=== PATIENT | female | born 1965 | race Caucasian/White ===

== ENCOUNTER 2019-08-13 05:46 | Inpatient (IN) ==
--- NOTE | 2019-07-17 16:37 | PAT Medication Instructions ---
Medication Instructions Date of Service July 17, 2019 Home Medications cholecalciferol (vitamin D3) [Vitamin D3] 5,000 unit PO QPM hydroxyzine HCl 25 mg PO QAM levothyroxine 175 mcg PO QAM pantoprazole 40 mg PO QAM DO NOT take the morning of surgery cholecalciferol (vitamin D3) [Vitamin D3] 5,000 unit PO QPM hydroxyzine HCl 25 mg PO QAM Take morning of surgery With a small sip of water, OTHERWISE NOTHING TO EAT OR DRINK AFTER MIDNIGHT: levothyroxine 175 mcg PO QAM pantoprazole 40 mg PO QAM Other Notes If you have any questions please call us at [phone] or [phone] or [phone] or [phone]
--- NOTE | 2019-07-18 08:35 | History & Physical Report ---
Date of Service July 18, 2019 date of surgery: 08-13-19 Assessment & Plan (1) Primary osteoarthritis of left knee: Further care discussed with patient and at this point in time has failed conservative measures and would like to proceed with a left total knee replacement. Plan on discharge will be home with home health physical therapy. DVT prophalaxis with TEDs, SCDs and will also place on aspirin 81 mg p.o. b.i.d. for a month postop. Patient will have follow up appointment in our office two weeks post op for staple removal and re-evaluation. Patient otherwise has no other questions or concerns. History of Present Illness Chief Complaint: left knee pain Primary Care Provider: Marquez Scott Ms Campos is a 53 year old female who is here for a follow up of left knee pain, presents for pre-op prior to a left total knee replacement at [facility]. she complains of pain and decreased range of motion. She states that the symptoms have been chronic non-traumatic. Currently the patient states that the symptoms are moderate-severe. The pain is described as aching, sharp and throbbing. She rates her current pain as 6/10. The symptoms are aggravated by ascending stairs, descending stairs, daily activities, driving, first steps while awake, kneeling, movement, repetitive activities, sleeping in any position, squatting and walking. Barbara states that the symptoms are relieved by no specific activity. In addition to the knee pain, she is also experiencing decreased mobility, difficulty bending, difficulty going to sleep, limping, nighttime awakening, pain, stiffness, tenderness and weakness. Prior NSAIDs include Aleve and Ibuprofen. she has also had prior visco injections without any relief. Allergies Allergy/AdvReac Type Severity Reaction Status Date / Time levofloxacin Allergy Unknown SEVERE RASH Verified 07/11/19 14:53 Home Medications Home Medications Medication Instructions Recorded Confirmed Type cholecalciferol (vitamin D3) 5,000 unit PO QPM 07/11/19 07/11/19 History [Vitamin D3] hydroxyzine HCl 25 mg PO QAM 07/11/19 07/11/19 History levothyroxine 175 mcg PO QAM 07/11/19 07/11/19 History pantoprazole 40 mg PO QAM 07/11/19 07/11/19 History Past Med/Surg History Medical History Anxiety Bulging discs GERD (gastroesophageal reflux disease) Hypothyroidism Osteoarthritis Surgical History History of bilateral breast reduction surgery History of breast biopsy History of carpal tunnel release History of colonoscopy History of gastric bypass History of surgery BLADDER SLING SURGERY History of tooth extraction History of total abdominal hysterectomy and bilateral salpingo-oophorectomy History of tubal ligation Nausea and vomiting after administration of anesthetic agent Family History Mother Family history of reaction to anesthesia PONV Brother Family history of diabetes mellitus Father Family history of diabetes mellitus Social History Preferred Language: Urdu Communication Ability: Effective Clinic Physician Required: No Beliefs That Will Affect Care: None Current Living Situation: Spouse Other Information That Helps Us Care for You: No Feels Safe at Home: Yes Safety Concerns: Feels Safe At This Time Smoking Status: Former smoker Tobacco Type: cigarettes ; Do You Dip or Chew Tobacco: No ; Smoking End Date: QUIT A TEEN ; Second Hand Exposure: No ; Tobacco Cessation Education Requested by Patient: No Hx Alcohol Use: No Hx Substance Use: No Review of Systems Review of Systems: All systems reviewed & are unremarkable except as noted in HPI & below Constitutional: no fever, no chills and no sweats Respiratory: no cough and no dyspnea Cardiovascular: no chest pain, no dyspnea and no orthopnea Gastrointestinal: no abdominal pain, no nausea and no vomiting Musculoskeletal: as per Subjective / HPI Physical Exam Physical Exam: Ht: 5ft 5in Wt: 117.9kg BP: 124/70 Pulse: 72 Constitutional: WD/WN, vitals as above no acute distress Respiratory: normal respiratory effort, lungs clear to auscultation no respiratory distress, no labored breathing and does not use accessory muscles Cardiovascular: RRR, no murmur, no edema Gastrointestinal (Abdomen): normal bowel sounds, soft, nontender, no hepatosplenomegaly Musculoskeletal: Knee: + knee abnormal to inspection (Left knee: ), + effusion (+1 effusion), + surgical incision (well healed portals), + limited ROM of knee (ROM 0/3/110), + knee ROM with crepitation, + joint line tenderness (medial joint line) and + Lina's sign positive; no deformity, no skin erythema, no ecchymosis, no valgus laxity, no varus laxity, anterior drawer test negative, Aleksandar's sign negative and pivot shift test negative Results & Data Diagnostic Findings Left Knee X-ray from June 2019 confirms advanced degenerative changes to the left knee, greatest medial compartments and patellofemoral joint, showing joint space narrowing, osteophyte formation and subchondral sclerosis. no acute bony pathology noted.
--- NOTE | 2019-07-18 10:03 | Anesthesiology Consultation ---
Date of Service July 18, 2019 Assessment & Plan (1) Encounter for pre-operative examination: Chart Review Chart Review: Acceptable Risk for Surgery (pending surgeon-ordered PCP clearance scheduled 08/01 (LEATHA Romero; Trace)) and Patient seen in Pre Admission Testing Teaching & Discussion Pre-Anesthesia Teaching/Discussion Notes: Instructed NPO after midnight before surgery,except medications with 15 cc of water. Medication instructions provided according to the PAT guidelines. History Surgery Operation Date: 08/13/19 10:00 Proposed Procedures p Left Total Knee Arthroplasty - Luigi Orellana DO Height/Weight Height: 5 ft 5 in Weight: 117.9 kg Allergies Allergy/AdvReac Type Severity Reaction Status Date / Time levofloxacin Allergy Unknown SEVERE RASH Verified 07/11/19 14:53 Medications Home Medications Medication Instructions Recorded Confirmed Last Taken cholecalciferol (vitamin D3) 5,000 unit PO QPM 07/11/19 07/11/19 Unknown [Vitamin D3] hydroxyzine HCl 25 mg PO QAM 07/11/19 07/11/19 Unknown levothyroxine 175 mcg PO QAM 07/11/19 07/11/19 Unknown pantoprazole 40 mg PO QAM 07/11/19 07/11/19 Unknown Past Medical History Medical History Anxiety Bulging discs GERD (gastroesophageal reflux disease) controlled Hypothyroidism Morbid obesity Osteoarthritis Exercise / Class Metabolic Activity II 4-5 Yardwork/Stairs/Walk up hill Past Family History Family History Brother Family history of diabetes mellitus Father Family history of diabetes mellitus Past Surgical History Surgical History History of bilateral breast reduction surgery History of breast biopsy History of carpal tunnel release RIGHT History of colonoscopy History of gastric bypass 2000 History of surgery BLADDER SLING SURGERY History of tooth extraction History of total abdominal hysterectomy and bilateral salpingo-oophorectomy History of tubal ligation Past Anesthesia History No Hx of Anesthesia Complications (except PONV (remote)) and No Family Hx of Anesthesia Complications History of PONV History of PONV (per patient, no issues when pre-treatment used*) Social History Smoking Status: Former smoker tobacco type: cigarettes Do You Dip or Chew Tobacco: No Smoking End Date: Quit 30+ years ago Hx Alcohol Use: No Hx Substance Use: No Review of Systems Reflux controlled. Patient denies chest pain, shortness of breath, dyspnea on exertion, cough, wheezing, palpitations. Physical Exam Vital Signs VITALS BP 113/80 P 54 TEMP 98.2 SP02 97%RA RESP 18 PHYSICAL Full neck and c-spine range of motion. Full TMJ range of motion. TMD 3 finger breaths Mallampati Score 3 Dentition: upper left side tooth missing, several crowns on molars Lungs: clear throughout to auscultation Cardiac: regular rate and rhythm, no murmurs noted Spine: normal Carotid arteries: negative bruit Extremities: no edema Testing Laboratory Results 07/18/19 10:38 07/18/19 10:38 PT 10.0 Seconds (9.0-12.0) 07/18/19 10:38 INR 1.0 (0.9-1.1) 07/18/19 10:38 APTT 25.1 Seconds (21.0-31.0) 07/18/19 10:38 Hemoglobin A1c 5.8 % (4.5-5.6) H 07/18/19 10:38 Urine Color Yellow 07/18/19 10:38 Urine Appearance Clear (Clear) 07/18/19 10:38 Urine pH 7.0 (4.5-7.5) 07/18/19 10:38 Ur Specific [place] 1.019 (1.000-1.030) 07/18/19 10:38 Urine Protein Negative (Negative) 07/18/19 10:38 Urine Glucose (UA) Negative (Negative) 07/18/19 10:38 Urine Ketones Negative (Negative) 07/18/19 10:38 Urine Nitrite Negative (Negative) 07/18/19 10:38 Ur Leukocyte Esterase Negative (Negative) 07/18/19 10:38 Blood Type AB Positive 07/18/19 10:38 Antibody Screen NEGATIVE 07/18/19 10:38 07/18/19 10:38 Urine Culture - Final Urine,Clean Catch More than three types of organisms present, all low counts mixed probable skin aundrea. No further identifications or sensitivities to follow. Electrocardiogram Date: 07/18/19 Findings: + SB @ (52) Chest X-Ray Date: 07/18/19 Findings: + NAD
[2019-07-18 11:03] LABS: Basophils # (auto) 0.02 K/uL (0-0.2); Basophils % (auto) 0.3 %; Eosinophils # (auto) 0.19 K/uL (0-0.5); Eosinophils % (auto) 2.4 %; Hematocrit (blood only) 36.4 % (37-47); Hemoglobin 11.7 g/dL (12.0-16.0); Immature Granulocytes # (auto) 0.01 K/uL (0.00-0.02); Immature Granulocytes % (auto) 0.1 %; Lymphocytes # (auto) 1.83 K/uL (1.2-3.4); Lymphocytes % (auto) 23.6 %; Mean Corpuscular Hemoglobin 28.3 pg (25-34); Mean Corpuscular Hgb Conc 32.1 g/dL (32-36); Mean Corpuscular Volume 87.9 fL (80-100); Monocytes # (auto) 0.61 K/uL (0.11-0.59); Monocytes % (auto) 7.9 %; Neutrophils % (auto) 65.7 %; Platelet Count 211 K/uL (130-400); RDW Coefficient of Variation 13.4 % (11.5-14.5); RDW Standard Deviation 42.9 fL (36.4-46.3); Red Blood Count 4.14 M/uL (4.2-5.4); White Blood Count 7.76 K/uL (4.8-10.8)
[2019-07-18 11:08] LABS: Appearance Urine Clear (Clear); Bilirubin Urine Negative (Negative); Blood Urine Negative (Negative); Color Urine Yellow; Glucose Urine UA Negative (Negative); Ketones Urine Negative (Negative); Leukocyte Esterase Urine Negative (Negative); Nitrite Urine Negative (Negative); Protein Urine Negative (Negative); Specific Gravity Urine 1.019 (1.000-1.030); Urobilinogen Urine Negative (Negative)
--- NOTE | 2019-07-18 11:09 | XRay Report ---
XR chest Pre-admission PA/Lat HISTORY: 53 years-old Female PAT preoperative exam. No acute chest complaints COMPARISON: None available TECHNIQUE: PA and lateral views of the chest FINDINGS: Cardiomediastinal and hilar silhouettes are within normal limits. No pneumothorax, pleural effusion, focal airspace consolidation or overt pulmonary edema. Bones of the chest appear grossly intact. IMPRESSION: No acute process. The above report was generated using voice recognition software. It may contain grammatical, syntax o r spelling errors. Electronically signed by: Kemal Thorpe M.D. 07/18/2019 11:08 AM
[2019-07-18 11:21] LABS: Partial Thromboplastin Ratio 0.9; Partial Thromboplastin Time 25.1 Seconds (21.0-31.0)
[2019-07-18 11:41] LABS: Estimated Average Glucose 120 mg/dl; Hemoglobin A1C 5.8 % (4.5-5.6)
[2019-07-18 13:36] LABS: Albumin Level 3.6 gm/dl (3.4-5.0); BUN Creatinine Ratio 21.4 (10-20); Calcium 8.9 mg/dl (8.5-10.1); Creatinine Clr Calc Pharmacy 96.1 ml/min; Est GFR (African American) 87.6; Est GFR (Non-African American) 75.5
[2019-08-13] MEDS ORDERED: CeleBREX 200 MG CAP PO SCH (06:00)
[2019-08-13] MEDS ORDERED: ROPIVACAINE 0.5% HCL/PF 150 MG, BUPIVACAINE 0.5% MPF 30 ML, EPINEPHrine 30MG/30ML (OR U... INSTIL SCH (06:00)
[2019-08-13] MEDS ORDERED: FAMOTIDINE 20 MG TAB PO SCH (06:00)
[2019-08-13] MEDS ORDERED: CEFAZOLIN 3000MG 72.5 ML IV SCH (06:00)
[2019-08-13] MEDS ORDERED: dexAMETHasone 4 MG TAB PO SCH (06:00)
[2019-08-13] MEDS ORDERED: ACETAMINOPHEN 500 MG TAB PO SCH (06:00)
[2019-08-13] MEDS ORDERED: GABAPENTIN 300 MG CAP PO SCH (06:00)
[2019-08-13] MEDS ORDERED: LR 500ML BOLUS, THEN 15ML/HR IV SCH (06:00)
[2019-08-13] MEDS ORDERED: TRANEXAMIC ACID 1,000 MG **IV Pre-op IV SCH (06:00)
[2019-08-13] MEDS ORDERED: BUPIVACAINE 0.5 % 5 MG/1 ML PF 10ML VIAL ONE (06:29)
[2019-08-13] MEDS ORDERED: ROPIVACAINE 0.5% 5 MG/ML 30 ML VIAL ONE (06:29)
[2019-08-13] MEDS ORDERED: EPINEPHrine INJ 1 MG/ML AMP ONE (06:29)
[2019-08-13] MEDS ORDERED: TRANEXAMIC ACID 1,000 MG **IV Intra-op IV SCH (06:30)
[2019-08-13] MEDS ORDERED: PROPOFOL IV EMULSION 10 MG/ML 20 ML VIAL IV ONE ×2 (06:45→09:53)
[2019-08-13] MEDS ORDERED: LIDOCAINE HCL 2% 2 ML VIAL/AMP(20MG/ML) INFIL ONE (06:45)
[2019-08-13] MEDS ORDERED: MIDAZOLAM HCL 1 MG/ML 2ML VIAL ONE (06:45)
[2019-08-13] MEDS ORDERED: ONDANSETRON INJ 2 MG/ML 2 ML VIAL ONE (06:45)
--- NOTE | 2019-08-13 07:03 | History & Physical Bridge Note ---
Date of Service August 13, 2019 History & Physical Bridge Note I have examined the patient, reviewed the History & Physical and in the interval since the performance of the History & Physical I have noted the following changes of clinical significance: no changes noted
[2019-08-13] MEDS ORDERED: BACITRACIN INJ 50,000 UNIT VIAL ONE (07:07)
[2019-08-13] MEDS ORDERED: ORTHO JOINT ANESTHETIC ONE (07:07)
[2019-08-13] MEDS ORDERED: ePHEDrine sulfate 50 MG/ML AMP IV PRN (08:26)
[2019-08-13] MEDS ORDERED: ATROPINE SULFATE 0.1 MG/ML 10ML SYR IV PRN (08:26)
--- NOTE | 2019-08-13 09:39 | Operative Report ---
Post Operative Report Pre & Post Diagnosis Operation Date: 08/13/19 08:20 Pre-Op Diagnosis: Unilateral Primary Osteoarthritis, Left Knee Post-Op Diagnosis: Unilateral Primary Osteoarthritis, Left Knee Procedure Operation Date: 08/13/19 08:20 Actual Procedures p Left Total Knee Arthroplasty(Left) utilizing journey to non-block total knee arthroplasty size 5 femur 4 tibia 9 polyethylene 32 oval patella- Luigi Orellana DO Surgeon Luigi Orellana DO General Passenger Agent Martin MITCHELL Estimated Blood Loss 5 Findings Consistent with Post-Op Diagnosis Patient presents with severe end-stage tricompartmental degenerative joint disease left knee no response to conservative management time findings at times with the above findings were noted patient had subchondral cystic changes marginal osteophytes with medial lateral compartment eburnated [id number] medial and lateral compartment patellofemoral osteophytes moderate to large effusion no response with conservative management Specimens Bone cartilage Drains Medium bore Hemovac Complications none Disposition Accompanied Patient To Recovery: No Disposition: Recovery Room Indications Patient presents as a 54-year-old female with severe end-stage tricompartmental degenerative joint disease left knee no response to conservative management she presents after having failed attempts at conservative management patient had the above intraoperative findings patient failed attempts at the corticosteroid injection Visco supplementation relative rest activity modification presents for right total knee arthroplasty the above intraoperative findings were noted Description of Procedure After the patient was properly identifiedAfter proper prepping and draping of the left lower extremity anterior midline incision was made over the region of the extensor extensor mechanism after meticulous hemostasis was obtained and maintained in subcutaneous tissues a medial parapatellar incision was made The patella was subluxed lateralward the medial lateral gutter were cleaned from any hypertrophic synovitis and scar tissue of the distal femoral block was placed and the distal femoral osteotomy cut was made subsequently the chamfers anterior and posterior osteotomy cuts were made utilizing the 4-in-1 block the tibia was subsequently subluxed anteriorward medial and ateral meniscal remnants were excised in their entirety remnants of the anterior and posterior cruciate ligaments were excised in their entirety excellent exposure of the proximal tibia was obtained the tibial osteotomy guide was placed on the proximal tibial osteotomy cut was made once again the knee was irrigated with copious amounts of sterile saline solution the patella was subsequently everted lateralward thickened scar tissue around the patella was removed the patella was subsequently cut utilizing a freehand technique and was drilled prepared for final preparation and placement of patella socially flexion-extension gaps were checked and the equal and symmetric trials were placed to the appropriate femoral and tibial trials with poly-spacer being placed for equal flexion and extension gaps and full range of motion including extension to 0 and flexion to 140 the trial components after having been taken to recovery range of motion was subsequently removed meticulous hemostasis was obtained and maintained subsequently a knee block injection of joint cocktail including ropivacaine 0.5% 150 mg. Bupivacaine 0.5% epinephrine 1-200,030 mL's toradol 30 mg dexamethasone 4 mg ketamine 10 mg clonidine 100 micrograms normal saline solution 30 mg was infiltrated into the soft tissues of the posterior knee medial lateral gutters and periosteal synovium special attention was paid to protect neurovascular structures at all times subsequently trial components having been removed the knee was irrigated with sterile saline solution. debris was removed the proximal tibia was subsequently prepared and was made ready for the placement of the tibial component tibial component was also cemented and tamped into position the femoral component was subsequently placed and cemented in the position the patellar component was subsequently cemented in position because hemostasis once again obtained and maintained wound having been thoroughly irrigated with debridement and debridement lavage was performed as well as a medial parapatellar incision closed with #1 Vicryl in interrupted fashion subcutaneous was closed with #2 Vicryl skin was closed with skin clips. PA-C was necessary for prepping and drapping as well as wound closure of deep fascia Sub cutaneous tissue and skin and was necessary for the case. A sterile compressive dressing was placed patient was taken to recovery in stable condition of report dictated by Esteban I attest to the content of the Intraoperative Record and any orders documented therein. Any exceptions are noted below. I attest to the content of the Intraoperative Record and any orders documented therein. Any exceptions are noted below.
--- NOTE | 2019-08-13 10:47 | XRay Report ---
XR knee LT 2V routine CLINICAL HISTORY: Postoperative examination. COMPARISON: None. DISCUSSION: There are postsurgical changes of a total left knee arthroplasty and patellar resurfacing . The femoral tibial components appear well seated. There is an overlying surgical drain. There is ga s in the soft tissues consistent with recent surgery. IMPRESSION: Postsurgical changes of a total left knee arthroplasty. Electronically signed by: Abhay Christensen M.D. 08/13/2019 10:46 AM
--- NOTE | 2019-08-13 11:11 | Anesthesiology Progress Note ---
Date of Service August 13, 2019 Anesthesia Post Procedure Vital Signs Vital Signs: Temp Pulse Pulse Resp BP Pulse Ox 08/13/19 11:00 36.5 C 85 15 132/71 99 08/13/19 10:50 76 12 136/79 99 08/13/19 10:40 87 10 L 119/75 99 08/13/19 10:30 96 H 11 L 121/65 100 08/13/19 10:23 37.4 C 118 H 13 114/58 L 98 08/13/19 06:16 36.6 C 66 20 146/86 H 98 Pain Intensity Left Knee: Pain Intensity: 0 Transfer of Care Handoff Completed per policy Notes Mental Status: alert / awake / arousable Patient Amnestic to Procedure: Yes Nausea / Vomiting: adequately controlled Pain: adequately controlled Airway Patency, RR, SpO2: stable & adequate BP & HR: stable & adequate Hydration State: stable & adequate Neuraxial Anesthesia: was administered and sensory block is resolving Anesthetic Complications: no major complications apparent
[2019-08-13] MEDS ORDERED: bisacodyL 10 MG SUPP PR PRN (11:41)
[2019-08-13] MEDS ORDERED: ONDANSETRON INJ 2 MG/ML 2 ML VIAL IV PRN (11:41)
[2019-08-13] MEDS ORDERED: METOCLOPRAMIDE HCL INJ 5 MG/ML 2 ML VIAL IV PRN (11:41)
[2019-08-13] MEDS ORDERED: MAGNESIUM HYDROXIDE SUSP 30 ML UDC PO PRN (11:41)
[2019-08-13] MEDS ORDERED: NALOXONE HCL 0.4 MG/1 ML VIAL/CARP IV PRN (11:41)
[2019-08-13] MEDS: KETOROLAC TROMETHAMINE 15 MG/ML VIAL IV SCH ×3 (13:25→23:45)
[2019-08-13] MEDS: ACETAMINOPHEN 500 MG TAB PO SCH ×2 (13:49→21:12)
[2019-08-13] MEDS: SODIUM CHLORIDE 0.9% 1000ML 1,000 ML IV SCH ×2 (13:49→16:29)
[2019-08-13] MEDS: OXYCODONE HCL IR 5 MG TAB (IMMEDIATE RELEASE) PO PRN ×2 (13:51→18:17)
[2019-08-13] MEDS ORDERED: INFLUENZA ADMINISTRATION CHARGE ONE (14:00)
[2019-08-13] MEDS ORDERED: INFLUENZA VIRUS QUAD VACCINE 0.5 ML SYR IM ONE (14:00)
[2019-08-13] MEDS: FERROUS GLUCONATE 324 MG TAB PO SCH (16:22)
[2019-08-13] MEDS: CEFAZOLIN 2000MG 2,000 MG/15 ML SYR IV SCH ×2 (16:22→23:45)
[2019-08-13] MEDS: SENNA 8.6 MG TAB PO SCH (20:11)
[2019-08-13] MEDS: ASPIRIN 81 MG ECTAB PO SCH (20:11)
[2019-08-13] MEDS: CHOLECALCIFEROL 1,000 UNITS TAB PO SCH (20:12)
[2019-08-13] MEDS: DOCUSATE SODIUM 100 MG CAP PO SCH (20:12)
[2019-08-14] MEDS: KETOROLAC TROMETHAMINE 15 MG/ML VIAL IV SCH ×4 (05:55→23:45)
[2019-08-14] MEDS: ACETAMINOPHEN 500 MG TAB PO SCH ×3 (05:56→20:51)
[2019-08-14] MEDS: LEVOTHYROXINE SODIUM 175 MCG TABLET PO SCH (05:56)
[2019-08-14 06:16] LABS: Hematocrit (blood only) 32.1 % (37-47); Hemoglobin 10.1 g/dL (12.0-16.0); Mean Corpuscular Hemoglobin 27.7 pg (25-34); Mean Corpuscular Hgb Conc 31.5 g/dL (32-36); Mean Corpuscular Volume 88.2 fL (80-100); Platelet Count 201 K/uL (130-400); RDW Coefficient of Variation 13.1 % (11.5-14.5); RDW Standard Deviation 42.6 fL (36.4-46.3); Red Blood Count 3.64 M/uL (4.2-5.4); White Blood Count 15.67 K/uL (4.8-10.8)
[2019-08-14 06:56] LABS: Calcium 8.5 mg/dl (8.5-10.1); Creatinine Clr Calc Pharmacy 100.7 ml/min; Est GFR (Non-African American) 79.3; Potassium 4.5 mmol/L (3.5-5.1)
[2019-08-14] MEDS: OXYCODONE HCL IR 5 MG TAB (IMMEDIATE RELEASE) PO PRN ×4 (07:57→21:18)
[2019-08-14] MEDS: ASPIRIN 81 MG ECTAB PO SCH ×2 (07:59→20:50)
[2019-08-14] MEDS: DOCUSATE SODIUM 100 MG CAP PO SCH ×2 (07:59→20:50)
[2019-08-14] MEDS: PANTOprazole 40 MG TAB PO SCH (07:59)
[2019-08-14] MEDS: MULTIVITAMIN TAB PO SCH (07:59)
[2019-08-14] MEDS: FERROUS GLUCONATE 324 MG TAB PO SCH ×2 (07:59→15:49)
--- NOTE | 2019-08-14 08:10 | Orthopedic Progress Note ---
Date of Service August 14, 2019 Assessment & Plan (1) Primary osteoarthritis of left knee: POD#1 Left TKA -PT/OT -Pain management -AM labs-Hgb to 10.1 from 11.7 preop -DVT prophylaxis-SCDs, ASA 81mg BID -D/C-home with home health PT Subjective Patient is s/p left TKA done yesterday by Dr. Orellana. Doing well overall, mild pain in knee. No other complaints. Denies chest pain, sob, diarrhea, constipation, nausea, vomiting. Review of Systems Review of Systems: All systems reviewed & are unremarkable except as noted in HPI & below Physical Exam Physical Exam: Dressing c/d/i. No calf tenderness. Toes mobile, good dorsiflexion. N/V status and sensation intact Constitutional: well developed and well nourished; no acute distress Results & Data Vital Signs (Past 12 Hours) Vital Signs Temp Pulse Pulse Resp BP Pulse Ox 08/14/19 07:54 64 08/14/19 02:39 36.5 C 47 L 14 133/77 97 08/13/19 23:31 47 L 08/13/19 23:24 36.7 C 47 L 16 121/75 96 Laboratory Results H & H 07/18/19 08/14/19 Range/Units 10:38 05:34 Hgb 11.7 L 10.1 L (12.0-16.0) g/dL Hct 36.4 L 32.1 L (37-47) % Coagulation 07/18/19 Range/Units 10:38 INR 1.0 (0.9-1.1)
--- NOTE | 2019-08-14 08:49 | Anesthesiology Progress Note ---
Date of Service August 14, 2019 Anesthesia Post Procedure Vital Signs Vital Signs: Temp Pulse Pulse Resp BP Pulse Ox 08/14/19 07:54 64 08/14/19 07:42 36.6 C 68 17 124/77 98 08/14/19 02:39 36.5 C 47 L 14 133/77 97 08/13/19 23:31 47 L 08/13/19 23:24 36.7 C 47 L 16 121/75 96 08/13/19 18:57 36.6 C 60 16 118/76 96 08/13/19 15:01 36.6 C 60 16 115/73 96 08/13/19 13:25 57 L 18 122/77 97 08/13/19 12:24 59 L 16 112/75 97 08/13/19 11:58 54 L 18 117/76 99 08/13/19 11:15 61 14 127/70 100 08/13/19 11:10 68 16 120/78 99 08/13/19 11:00 36.5 C 85 15 132/71 99 08/13/19 10:50 76 12 136/79 99 08/13/19 10:40 87 10 L 119/75 99 08/13/19 10:30 96 H 11 L 121/65 100 08/13/19 10:23 37.4 C 118 H 13 114/58 L 98 Pain Intensity Left Knee: Pain Intensity: 0 Bilateral Head: Pain Intensity: 5 Notes Mental Status: alert / awake / arousable and participated in evaluation Patient Amnestic to Procedure: Yes Nausea / Vomiting: adequately controlled Pain: adequately controlled Airway Patency, RR, SpO2: stable & adequate BP & HR: stable & adequate Hydration State: stable & adequate Neuraxial Anesthesia: was administered and sensory block resolved Anesthetic Complications: no major complications apparent and Pt Satisfied with anesthetic care
[2019-08-14] MEDS: SENNA 8.6 MG TAB PO SCH (20:51)
[2019-08-14] MEDS: CHOLECALCIFEROL 1,000 UNITS TAB PO SCH (20:51)
[2019-08-15] MEDS: KETOROLAC TROMETHAMINE 15 MG/ML VIAL IV SCH (06:06)
[2019-08-15] MEDS: ACETAMINOPHEN 500 MG TAB PO SCH (06:06)
[2019-08-15] MEDS: LEVOTHYROXINE SODIUM 175 MCG TABLET PO SCH (06:10)
[2019-08-15] MEDS: FERROUS GLUCONATE 324 MG TAB PO SCH (08:28)
[2019-08-15] MEDS: MULTIVITAMIN TAB PO SCH (08:28)
[2019-08-15] MEDS: ASPIRIN 81 MG ECTAB PO SCH (08:28)
[2019-08-15] MEDS: DOCUSATE SODIUM 100 MG CAP PO SCH (08:28)
[2019-08-15] MEDS: PANTOprazole 40 MG TAB PO SCH (08:28)
[2019-08-15] MEDS: OXYCODONE HCL IR 5 MG TAB (IMMEDIATE RELEASE) PO PRN (09:10)
--- NOTE | 2019-08-15 09:14 | Orthopedic Progress Note ---
Date of Service August 15, 2019 Assessment & Plan (1) Primary osteoarthritis of left knee: POD#2 Left TKA -PT/OT -Pain management -DVT prophylaxis-SCDs, ASA 81mg BID -D/C-home with home health PT Plan for discharge to home today. Subjective Postop day 2 status post left TKA Patient is currently sitting up in her chair at the bedside. She is having a little bit of discomfort in her left knee. She had some Toradol this morning at 0600 and is due for her oxycodone at this point time. Breath, chest pain, lightheadedness. She denies calf tenderness. He is hoping to go home today. Physical Exam Physical Exam: Incision is clean, dry, and intact. Calves are soft and nontender. Toes are mobile. Neurovascular intact. Results & Data Vital Signs (Past 12 Hours) Vital Signs Temp Pulse Resp BP Pulse Ox 08/15/19 07:50 36.7 C 56 L 16 128/74 98 08/14/19 23:39 36.5 C 50 L 14 108/70 99
--- NOTE | 2019-08-18 11:38 | Discharge Summary ---
Date of Service August 18, 2019 Admission HPI Per Admitting Provider Ms Campos is a 53 year old female who is here for a follow up of left knee pain, presents for pre-op prior to a left total knee replacement at [facility]. she complains of pain and decreased range of motion. She states that the symptoms have been chronic non-traumatic. Currently the patient states that the symptoms are moderate-severe. The pain is described as aching, sharp and throbbing. She rates her current pain as 6/10. The symptoms are aggravated by ascending stairs, descending stairs, daily activities, driving, first steps while awake, kneeling, movement, repetitive activities, sleeping in any position, squatting and walking. Barbara states that the symptoms are relieved by no specific activity. In addition to the knee pain, she is also experiencing decreased mobility, difficulty bending, difficulty going to sleep, limping, nighttime awakening, pain, stiffness, tenderness and weakness. Prior NSAIDs include Aleve and Ibuprofen. she has also had prior visco injections without any relief. Admission Exam Per Admitting Provider Physical Exam: Ht: 5ft 5in Wt: 117.9kg BP: 124/70 Pulse: 72 Constitutional: WD/WN, vitals as above no acute distress Respiratory: normal respiratory effort, lungs clear to auscultation no respiratory distress, no labored breathing and does not use accessory muscles Cardiovascular: RRR, no murmur, no edema Gastrointestinal (Abdomen): normal bowel sounds, soft, nontender, no hepatosplenomegaly Musculoskeletal: Knee: + knee abnormal to inspection (Left knee: ), + effusion (+1 effusion), + surgical incision (well healed portals), + limited ROM of knee (ROM 0/3/110), + knee ROM with crepitation, + joint line tenderness (medial joint line) and + Lina's sign positive; no deformity, no skin erythema, no ecchymosis, no valgus laxity, no varus laxity, anterior drawer test negative, Aleksandar's sign negative and pivot shift test negative Principal Diagnosis Left knee osteoarthritis Discharge Exam Incision is clean, dry, and intact. Calves are soft and nontender. Toes are mobile. Neurovascular intact. Discharge Data Allergies Allergy/AdvReac Type Severity Reaction Status Date / Time levofloxacin Allergy Unknown SEVERE RASH Verified 08/13/19 06:29 Consultations 08/13/19 11:41 Consult Case Management - Discharge Planning Routine Procedures Performed Operation Date: 08/13/19 08:20 Actual Procedures p Left Total Knee Arthroplasty(Left) - Luigi Orellana DO Ordered Studies 08/13/19 05:00 US - OR guided needle placemen Routine Hospital Course (1) Primary osteoarthritis of left knee: Patient was admitted on the above-noted date and had the above-noted surgery of which she tolerated well. On her first postoperative day, vital signs are remaining stable and she was afebrile. She had mild knee pain but was otherwise without complaints. Hemoglobin was 10.1. She was started on her physical therapy and occupational therapy protocols. She was continued on DVT prophylaxis and pain management. By her second postoperative day, she was having some mild knee pain that morning but was due for her pain medications at that point in time. She denied any shortness of breath, chest pain, lightheadedness. Incision was clean, dry, intact. No overt erythema. Calves are soft and nontender. Neurovascular intact. Toes are mobile. She is progressing with her physical therapy and was felt to be discharged home. Total Time Total Time Spent Total Time Spent (In Minutes): 1 Discharge Plan Discharge Items Patient Disposition: Home - Home Health Services Reason For Visit: Unilateral Primary Osteoarthritis, Left Knee Discharge Diagnosis: Left Knee Osteoarthritis Activity: Per Instructions section Weightbearing: Left weightbearing Weightbearing Comment: as tolerated with walker Non-emergency contact: Surgeon Call non-emergency contact if: your pain is not controlled, your temperature is above 101.5, your wound has increased redness and your wound has increased drainage Follow-up/Referrals: Marquez Scott [Primary Care Provider] - Diet: Regular Addtl Attending Provider Instructions: ACTIVITY RECOMMENDATIONS: SELF CARE INSTRUCTIONS AFTER TOTAL KNEE REPLACEMENT A. You may need to continue a physical therapy program after discharge from the hospital. There are several options available to you. Your doctor will assist you in selecting the best one for you. 1. An out-patient facility 2 to 3 times a week for therapy or home therapy. 2. Continue working on all exercises taught to you in the hospital. Your goals should be to increase bending of your knee to 90 degrees and beyond and to fully straighten your knee. B. You may progress at your own pace from walking with a walker or crutches to a cane; then to no assistive devices. C. Make walking a part of your daily routine. Be up as much as comfortable with rest periods throughout the day. Rest with leg elevation is very important. Use the ice wrap frequently for the first 3-4 weeks. D. There are no restrictions on activities. You may ride in a car, shop, participate in data scientist and all social activities. E. Wear the long elastic stockings (LACIE hose) 20 hours a day for 2 weeks after surgery. They can be removed several times a day for laundering and for a bath. F. You may shower, no tub baths until cleared by your doctor. SPECIAL CARE INSTRUCTIONS: VERY IMPORTANT TO READ AND REVIEW A. There are a few signs you need to watch for after you are home. Call [facility] if you notice any of the followin. Increased severe knee pain. Some pain is expected especially when you exercise. 2. Increased swelling in your leg or knee; pain or swelling of the calf muscle in either lower leg. 3. Any fluid drainage from the incision. 4. Shortness of breath or chest pain. B. Please call [facility] at if you have any concerns or questions about your operation or recovery. The doctor or his nurse will return your call promptly. C. You must take antibiotics before dental work, bladder, bowel or other surgery. Your doctor will provide you with a permanent care to carry describing this precaution. IMPORTANT: * REMEMBER TO TAKE ASPIRIN, 81 MG, TWICE DAILY FOR 4 WEEKS UNLESS OTHERWISE DIRECTED. THIS IS YOUR BLOOD THINNER. * HIGH RISK PATIENTS MAY BE PRESCRIBED A STRONGER BLOOD THINNER. THIS WILL BE PROVIDED AT DISCHARGE. * CALL IF INCREASED PAIN, REDNESS, DRAINAGE OR FEVER GREATER THAT 101. * WEAR LACIE HOSE 20 HOURS PER DAY FOR 2 WEEKS. * DERMABOND Prineo- This is a mesh tape dressing that is covered with glue. It should remain in place until the incision is properly healed, usually 10-14 days. This dressing is designed to naturally slough off. You may trim the excess mesh tape as it peels off. Incision may be briefly wet in a shower. Dry immediately by blotting with a clean, dry towel. Do not bath or swim until instructed by your doctor. Do not scratch, rub, or pick at the dressing. Do not apply any topical ointments or lotions until dressing is completely removed and/or instructed by your doctor. There may be a small piece of suture material at one end of your incision. Do not pull or trim this. If it is bothersome or catching on clothing, you may cover it with a band-aid. Call the office with any questions. . FOLLOW UP VISIT: If appointment is not already scheduled: Please call [facility] to make a follow-up appointment for 2 weeks after your surgery at . Stand-Alone Forms: My [facility], Opioid Pain Management Medications and DC Order Prescriptions: New aspirin [Ecotrin Low Strength] 81 mg Tablet,Delayed Release (Dr/Ec) 81 mg PO BID 30 Days Qty: 60 RF: 0 acetaminophen [Tylenol Extra Strength] 500 mg Tablet 1,000 mg PO Q8 14 Days Qty: 84 RF: 0 oxycodone 5 mg Tablet 5 - 10 mg PO Q6H PRN (Reason: pain) Qty: 30 RF: 0 sennosides [Senokot] 8.6 mg Tablet 17.2 mg PO HS PRN (Reason: constipation) Qty: 30 RF: 0 cefadroxil 500 mg capsule 500 mg PO BID Qty: 28 RF: 1 Continued levothyroxine 175 mcg Tablet 175 mcg PO QAM RF: 0 hydroxyzine HCl 25 mg Tablet 25 mg PO QAM RF: 0 pantoprazole [address] For Susp In Packet 40 mg PO QAM RF: 0 cholecalciferol (vitamin D3) [Vitamin D3] 5,000 unit Tablet 5,000 unit PO QPM RF: 0 Discharge Orders: Discharge Order (Routine); Ordered 08/15/19 Ordered By: Martin Garza/Other Patient Handouts: Replacement Knee, Replacement Knee Home After, Replacement Knee First Month, Surgery Joint Home Safety, Replacement Knee After Knee Health Admission Data Admit Date/Time: 08/13/19 10:32 Attending Provider: Luigi Orellana Admit Provider: Luigi Orellana Primary Care Provider: Marquez Scott Other Interventions: Discharge Summary Assessment (RN) Last Done: 08/15/19 09:49 DC Date/Time DO NOT enter until pt leaves facility: 08/15/19 12:03
== END 2019-08-15 12:03 | disposition home health service (06) | DRG 470 ==
LOC: ASU 05:46 → 3E 10:32